=== PATIENT | male | born 1955 | race Two or more races ===

== ENCOUNTER 2022-08-15 14:36 | Emergency (ER) | payer MEDICARE, MEDICAID ==
[~2022-08-15] VITALS: Ht 172.7 cm; Wt 79.0 kg
[2022-08-15 14:42] VITALS: BP 159/92
[2022-08-15] MEDS ORDERED: SODIUM CHLORIDE 0.9% 500 ML IV ONE (15:30)
[2022-08-15 16:01] LABS: BASOPHILS % 0.7 % (0.0-2.0); EOSINOPHILS % 0.3 % (0.0-5.0); HEMATOCRIT. 48.3 % (42.0-52.0); HEMOGLOBIN. 16.4 g/dL (14.0-18.0); LYMPHOCYTES % 11.3 % (20.0-50.0); MEAN CORPUSCULAR HEMOGLOBIN 26.8 pg (28.0-32.0); MEAN CORPUSCULAR VOLUME 78.8 fL (80.0-94.0); MONOCYTES % 5.3 % (2.0-8.0); NEUTROPHILS % 82.4 % (40.0-76.0); RED BLOOD CELL COUNT 6.12 mill/uL (4.7-6.1); RED CELL DISTRIBUTION WIDTH 15.8 % (11.6-14.6)
[2022-08-15 16:17] LABS: CHLORIDE 111 mEq/L (98-107)
[2022-08-15 17:16] LABS: MEAN PLATELET VOLUME 8.2 fl (7.4-10.4); PLATELET 327 x1000/uL (130-400); PLATELET ESTIMATE NORMAL
[2022-08-15 18:11] LABS: CLARITY URINE CLEAR (CLEAR); COLOR URINE YELLOW (YELLOW); KETONES URINE 1+ (NEGATIVE); LEUKOCYTE ESTERASE URINE NEGATIVE (NEGATIVE); NITRITE URINE NEGATIVE (NEGATIVE); OCCULT BLOOD URINE NEGATIVE (NEGATIVE); PROTEIN URINE TRACE (NEGATIVE); SPECIFIC GRAVITY URINE 1.016 (1.005-1.030)
[2022-08-15] MEDS ORDERED: MECLIZINE 25MG TABLET PO ONE (18:45)
[2022-08-15] MEDS ORDERED: MECL-159 MT (20:02)
== END 2022-08-15 21:06 | disposition home or self-care (01) ==
LOC: ER 14:36
DX: H81.10 Benign paroxysmal vertigo, unspecified ear (principal); R11.2 Nausea with vomiting, unspecified; I10 Essential (primary) hypertension
CPT/HCPCS: 36415; 70450; 71045; 80053; 81003; 83690; 83880; 84484; 85025; 93005; 99285; J7040; J8597; 96360; 96361